=== PATIENT | female | born 2000 | race Two or more races ===

== ENCOUNTER → 2024-01-27 | Outpatient (CLI) | payer BC, SELFPAY ==
--- NOTE | 2024-01-27 15:09 | XR_ITS ---
Examination: PA lateral chest 2 views TECHNIQUE: Upright PA lateral chest 2 views Exam date and time: January 27, 2024 1529 hours INDICATIONS: Night sweats 18 months FINDINGS: Normal heart size Lungs are clear. Osseous structures are intact IMPRESSION: No active disease
[2024-01-27 16:48] LABS: Thyroid Stimulating Hormone 0.42 uIU/mL (0.55-4.78)
[2024-01-28 14:25] LABS: Cocci Serology, IgM Negative (Negative)
[2024-01-29 12:57] LABS: Cocci Serology, IgG Negative (Negative)
[2024-01-31 06:52] LABS: T3,Total* 86 ng/dL (76-181)
== END | disposition home or self-care (01) ==
LOC: CDIM 15:06 → COPL 15:33
PROVIDERS: PCP Nurse Practitioner Family; Referring Provider Nurse Practitioner Family; Visit Provider Nurse Practitioner Family
DX: R61 Generalized hyperhidrosis (principal)
CPT/HCPCS: 36415; 71046; 84439; 84443; 84480; 86331; 86635

== ENCOUNTER 2024-02-25 13:27 | Emergency (ER) | payer BC, SELFPAY ==
[2024-02-25 13:51] VITALS: BP 113/75; PULSE 105; RESP 20; TEMP 39.6; O2SAT 96; BMI 26.6
[2024-02-25 14:10] VITALS: TEMP 39.6
[2024-02-25] MEDS: IBUPROFEN TAB 400 MG TABLET 800 MG PO (14:10)
--- NOTE | 2024-02-25 14:22 | PD.EDURI ---
Upper Respiratory Inf. RME/HPI General Chief Complaint: Flu Like Symptoms Stated Complaint: Fever, DAVIS Time Seen by Provider: 02/25/24 13:44 Arrival date/time: 02/25/24 13:27 23-year-old female presents to the emergency department today complains of 1 day history of flulike symptoms patient reports fever, headache, body aches and chills. Patient ports no chance of patient reports no vomiting or abdominal pain Limitations: no limitations Related Data Previous Rx's ?Medication ?Instructions ?Recorded ibuprofen 800 mg tablet 800 mg PO TID PRN pain #30 tabs 02/25/24 ondansetron 4 mg disintegrating 4 mg PO Q8H PRN nausea and 02/25/24 tablet vomiting #10 tabs oseltamivir 75 mg capsule (Tamiflu) 75 mg PO BID 5 days #10 caps 02/25/24 Allergies Allergy/AdvReac Type Severity Reaction Status Date / Time No Known Allergies Allergy Verified 10/04/18 22:56 Review of Systems Review of Systems Systems Reviewed: All systems reviewed, normal except as documented Constitutional Constitutional: Reports system reviewed and no additional complaints, except as documented, Reports body ache(s), Reports chills, Denies fever(s) and Denies headache(s) Eyes Eyes: Reports system reviewed and no additional complaints, except as documented and Denies blurry vision ENT Ears, Nose, Mouth, and Throat: Reports system reviewed and no additional complaints, except as documented, Denies headache(s), Reports nasal congestion and Reports nasal discharge Cardiovascular Cardiovascular: Reports system reviewed and no additional complaints, except as documented, Denies chest pain and Denies dyspnea Respiratory Respiratory: Reports system reviewed and no additional complaints, except as documented, Reports chest congestion, Reports cough and Denies dyspnea Gastrointestinal Gastrointestinal: Reports system reviewed and no additional complaints, except as documented and Denies abdominal pain Integumentary/Breasts Skin/Breast: Reports system reviewed and no additional complaints, except as documented and Denies rash Neurologic Neurologic: Reports system reviewed and no additional complaints, except as documented, Reports as per HPI and Denies headache(s) Past Medical History Past Medical History NEUROLOGIC: Negative Neurological Disorders CARDIAC: Negative Cardiac Disorders ED Exam General Limitations: Present no limitations General appearance: Present alert and in no apparent distress Head Head exam: Present atraumatic, normocephalic and normal inspection Eye Eye exam: Present normal appearance, PERRL and EOMI; Absent conjunctival injection ENT ENT exam: Present normal exam, normal oropharynx and mucous membranes moist Neck Neck exam: Present normal inspection, full ROM and trachea midline Chest Chest inspection: Present normal inspection and symmetric chest wall rise Respiratory Respiratory exam: Present normal lung sounds bilaterally; Absent respiratory distress Cardiovascular Cardiovascular exam: Present regular rate, normal rhythm and normal heart sounds Abdominal Exam Abdominal exam: Present soft and normal bowel sounds; Absent distention, tenderness, guarding, rebound or rigidity Extremities Exam Extremities exam: Present normal inspection and full ROM Back Exam Back exam: Present normal inspection and full ROM Neurological Exam Neurological exam: Present alert, oriented X3, CN II-XII intact, normal gait and reflexes normal; Absent motor sensory deficit Psychiatric Psychiatric exam: Present normal affect and normal mood Skin Skin exam: Present warm, dry, intact and normal color Course Quality Measures none Orders Category Date Time Status Bedside Influenza A&B Antigen Test NOW Care 02/25/24 13:59 Completed Ibuprofen Tab [Motrin Tab] Med 02/25/24 13:59 Discontinued 800 mg PO X1 ONE Vital Signs Vital signs: Vital Signs Temperature 103.2 F H 02/25/24 13:51 Pulse Rate 105 H 02/25/24 13:51 Respiratory Rate 20 02/25/24 13:51 Blood Pressure 113/75 02/25/24 13:51 Pulse Oximetry (%) 96 02/25/24 13:51 Oxygen Delivery Method Room Air 02/25/24 13:51 O2 saturation 96% room air within normal limits Upper Respiratory Infection MDM Narrative MDM Narrative:: 23-year-old female presents to the emergency department today complains of 1 day history of flulike symptoms patient reports fever, headache, body aches and chills. Patient reports no chance of patient reports no vomiting or abdominal pain On exam patient well-appearing patient does not appear ill or toxic patient does not appear in acute distress despite having fever Patient here for the flu which came back positive consistent with patient symptoms Patient given medication for fever Patient discharged home in no distress to follow-up with primary care doctor in the next 24 to 48 hours and for any worsening symptoms to return to the ER immediately Patient data External records reviewed:: [facility] previous records Clinical information provided by:: patient Social determinants that could affect healthcare access:: none Patient has the following chronic illnesses:: None How is presenting disease/condition affected by chronic disease/condition?: no chronic disease Evaluation data The following diagnostics were reviewed and interpreted by me:: lab results Lab and/or radiology exams considered but not ordered:: Labs obtained Interpretation Summary: Given Medications / Prescriptions Medications or Prescriptions considered but not ordered:: Given Medication administrations:: Medication Administration History Discontinued Medications Ibuprofen (Ibuprofen Tab 400 Mg Tablet) 800 mg PO X1 ONE Stop: 02/25/24 14:00 Last Admin: 02/25/24 14:10 Dose: 800 mg Documented By: VG Given Consultations Consultation(s) initiated? (list below): No Diagnosis Upper Respiratory Differential Diagnosis: upper respiratory infection, sinusitis and pharyngitis Most likely diagnosis given after review of the tests above:: Influenza Admission Indicated Admission indicated?: not indicated Admission Request Was there a request for admission?: No Disposition Plan Disposition Plan: Discharge Discharge Attestation Discharge Attestation: The patient and all family members were given an opportunity to ask questions and understood the discharge instructions. Discharge instructions specifically effects, indications for sooner follow up or return to the emergency department, and the expected course of current diagnosis. Patient condition: Stable Discharge Plan Plan Patient Disposition: HOME (Self Care) Disposition Comment: Stable Prescriptions/Referrals Prescriptions/Med Rec: New ibuprofen 800 mg tablet 800 mg PO TID PRN (Reason: pain) Qty: 30 0RF ondansetron 4 mg tablet,disintegrating 4 mg PO Q8H PRN (Reason: nausea and vomiting) Qty: 10 0RF oseltamivir [Tamiflu] 75 mg capsule 75 mg PO BID 5 Days Qty: 10 0RF Referrals: Elizabeth Chauhan NP [Primary Care Provider] - 02/26/24 Problem List Clinical Impression: Influenza Patient/Caregiver Discharge Instructions Education Materials: The Flu (Influenza) Additional Instructions: Please follow up with your primary care doctor in the next 24-48hrs for any worsening symptoms return here immediately Print Language: Djiboutian Stand Alone Forms: Miesha Award Info., Patient Portal Info Letter PA/DIRECTOR OF MATERIALS Supervising Physician PA/SUNG Supervising Physician: dr berger
[2024-02-25 15:09] VITALS: BP 122/78; PULSE 88; RESP 16; TEMP 36.6; O2SAT 99
== END 2024-02-25 15:10 | disposition home or self-care (01) ==
PROVIDERS: Emergency Provider Emergency Medicine; PCP Nurse Practitioner Family
DX: J11.1 Influenza due to unidentified influenza virus with other respiratory manifestations (principal)
CPT/HCPCS: 87400; 99283; A9270